=== PATIENT | female | born 1950 | race Caucasian/White ===

== ENCOUNTER 2016-03-07 14:20 | Outpatient (CLI) | payer MEDICARE ==
[~2016-03-07] VITALS: Ht 160 cm; Wt 58.1 kg
[~2016-03-07 14:20] MED LIST: ASPIRIN ADULT L81 M2 PO; CALCIUM CARBON600 MG PO; CARVEDILOL3.125 MG PO; FLONASE 50 MCG16 GM; MELOXICAM15 MG PO; NIACIN PO; NIASPAN500 M1 PO; NIASPAN500 MG PO; OMEPRAZOLE40 MG PO; OSTEO BI-FLEX1 TAB PO; PREMARIN 0.60.625 MG PO; PREMARIN 0.9MG0.9 MG PO; VITAMIN D1000 IU PO; ZANTAC 150150 MG PO; ZOFRAN4 MG PO
[2016-03-07 14:50] VITALS: BP 130/42
[2016-03-07] MEDS ORDERED: CARVEDILOL6.25 MG PO (14:52)
[2016-03-07 15:20] VITALS: BP 116/35
[2016-03-07 15:50] VITALS: BP 132/103
[2016-03-07 16:10] VITALS: BP 114/54
== END 2016-03-07 16:10 | disposition home or self-care (01) ==
LOC: COP 14:20
DX: D50.9 Iron deficiency anemia, unspecified (principal); T45.4X5A Adverse effect of iron and its compounds, initial encounter
CPT/HCPCS: J1756

== ENCOUNTER 2016-03-11 13:20 | Outpatient (CLI) | payer MEDICARE ==
[~2016-03-11 13:20] MED LIST changes: +CARVEDILOL6.25 MG PO
[2016-03-11 13:53] VITALS: BP 134/64
[2016-03-11 14:05] VITALS: BP 129/64
[2016-03-11 14:20] VITALS: BP 130/61
[2016-03-11 14:35] VITALS: BP 131/67
== END 2016-03-11 14:50 | disposition home or self-care (01) ==
LOC: COP 13:20
DX: D50.9 Iron deficiency anemia, unspecified (principal); T45.4X5A Adverse effect of iron and its compounds, initial encounter
CPT/HCPCS: J1756

== ENCOUNTER → 2016-09-13 | Outpatient (CLI) | payer MEDICARE ==
--- NOTE | 2016-09-20 11:52 | RADIOLOGY REPORT PS360 ---
DEXA SCAN.-BONE DENSITY STUDY HIPS AND WRIST. HISTORY: Postmenopausal female TECHNIQUE: DEXA SCAN.-BONE DENSITY STUDY HIPS AND WRIST bone density HISTORY: Postmenopausal female 66-year-old female postmenopausal spinal stenosis. Osteoarthritis. Fusion lower lumbar spine L3-S1 thus no sampling performed here TECHNIQUE: DEXA scan hip and lumbar spine The most complete data summary and color graphic presentation of the today's ( and any prior ) DEXA findings are available in PACS. Definition and treatment guidelines included. COMPARISON: None listed WRIST = normal bone density Distal third of radius = T score 0.0 with BMD 0.888 . Radius UD/metaphysis = T score 0.9 with BMD 0.509. Age-matched Z score 2.5 are well above normal density for age . Overall wrist with averaging all areas sampled yields a BMD 0.718 = T score 0.6. All . HIPS: Femoral neck density is best predictor of hip fracture risk . Left femoral neck demonstrates the lowest T score -0.6 with BMD0.96 g/cm sq . Right femoral neck T score = -0.9 with BMD 0.912. Averaging all regions yields s Hip Mean T score -0.3 with BMD0.965 g/cm sq . . IMPRESSION 1. Wrist. Normal/Above Normal bone density 2. HIPS: Normal bone density hips bilateral WHO criteria for post-menopausal, Women: Normal: T-score at or above -1 SD Osteopenia: T-score between -1 and -2.5 SD Osteoporosis: T-score at or below -2.5 SD The most complete data summary and color graphic presentation of the today's ( and any prior ) DEXA findings are available in PACS. Definition and treatment guidelines included. COMPARISON: None listed LUMBAR SPINE: L2 vertebral body demonstrates the lowest T score 0.2 with BMD1.218 g/cm sq Overall mean lumbar L1-L4 T score 0.6 with BMD1.25 g/cm sq . 2015 prior DEXA the mean T score 0.6 with BMD was 1.224 g/cm sq Thus when comparing today's study to the prior exam there's been a 2.1% increasing mean bone density at the lumbar spine. HIPS: Femoral neck density is best predictor of hip fracture risk . demonstrates the lowest T score -0.8 with BMD0.933 g/cm sq . all region included with today's Hip Mean T score 0.4 with BMD1.054 g/cm sq . T score -0.8 with mean BMD0.933 g/cm sq Thus this reflects a 6% decrease in overall mean bone density at the hips in the interval. IMPRESSION 1. LUMBAR SPINE: 2. HIPS: WHO criteria for post-menopausal, Women: Normal: T-score at or above -1 SD Osteopenia: T-score between -1 and -2.5 SD Osteoporosis: T-score at or below -2.5 SD
== END ==
LOC: RAD 10:30
DX: Z78.0 Asymptomatic menopausal state (principal); Z13.820 Encounter for screening for osteoporosis